=== PATIENT | male | born 1975 | race Caucasian/White ===

== ENCOUNTER 2017-05-28 17:40 | Emergency (ER) | payer MEDICAID ==
[~2017-05-28] VITALS: Wt 81.0 kg
[2017-05-28] MEDS ORDERED: CLOT30CR24 TOP (19:47)
[2017-05-28] MEDS ORDERED: HC30CR25 TOP (19:47)
--- NOTE | 2017-05-28 22:03 | ERD ---
ER Documentation Chief Complaint Chief Complaint RECTAL PAIN AND CONSTIPATION X 2 DAYS HPI Patient is a 41-year-old male presented to the emergency department with complaints of rectal burning and itching. Symptoms have been worsening over the past 2 days. Last bowel movement was approximately 2 hours ago. The patient noted mild blood on the toilet paper when he was wiping today after a bowel movement. He does have history of hemorrhoids. He reports a burning inside of the rectal area. He also reports itching. Symptoms are moderate and intermittent and have not been improving. No other symptoms reported at this time. ROS All systems reviewed and are negative except as per history of present illness. Medications Home Meds Active Scripts Hydrocortisone* Topical (Hydrocortisone* Topical) 2.5%-28.3 Gm Cream..g., 1 APPLIC TOP BID for 7 Days, #1 TUB Prov:KAVON FERNANDO PA-C 05/28/17 Clotrimazole* (Clotrimazole* AF) 1% - 30 Gm Cream.gm., 1 APPLIC TOP BID for 7 Days, #1 TUB Prov:KAVON FERNANDO PA-C 05/28/17 Allergies Allergies: Coded Allergies: No Known Allergy (Unverified , 05/28/17) PMhx/Soc Medical and Surgical Hx: pt denies Medical Hx, pt denies Surgical Hx Hx Alcohol Use: Yes Hx Substance Use: No Hx Tobacco Use: No Smoking Status: Never smoker Physical Exam Vitals Vital Signs Date Time Temp Pulse Resp B/P Pulse Ox O2 Delivery O2 Flow Rate FiO2 05/28/17 17:45 98.0 89 18 133/82 99 Physical Exam Const: Nontoxic, well-appearing male in no acute distress. Head: Atraumatic Eyes: Normal Conjunctiva ENT: Normal External Ears, Nose and Mouth. Skin: No petechiae or rashes RECTAL: Verbal Consent Obtained. Erythema noted to the anus. Sphincter tone is normal. No external hemorrhoids seen. No evidence of anal fissure or internal hemorrhoids. Non-tender to digital rectal palpation. No masses palpated. Ext: No cyanosis, or edema Neur: Awake and alert Psych: Normal Mood and Affect Procedures/MDM 41-year-old male presents to the emergency department with complaints of rectal itching. Diagnosis is likely secondary to a tinea infection. There was erythema but no evidence of hemorrhoids or anal fissures or other abnormalities. The patient was stable for discharge with a prescription for hydrocortisone and clotrimazole topical. He is to have very close primary care follow-up. No evidence of life-threatening pathology at time of discharge. Pt/family in agreement with discharge plan/diagnosis. Pt/family advised to return immediately with any new or worsening symptoms. Follow-up with primary care physician within the next 1-2 days. Disclaimer: Inadvertent spelling and grammatical errors are likely due to EHR/ dictation software use and do not reflect on the overall quality of patient care. Also, please note that the electronic time recorded on this note does not necessarily reflect the actual time of the patient encounter. Departure Diagnosis: Primary Impression: Rectal itching Additional Impression: Rectal hemorrhage Condition: Fair Patient Instructions: Maria Teresa Shirley, General [facility] Usted se wild hecho un examen mdico de control que le indica que no est en patricio condicin que requiera tratamiento urgente en el Departamento de Emergencia. Un estudio ms profundo y el tratamiento de palma condicin pueden esperar sin ningn riesgo hasta que usted sea atendida/o en el consultorio de palma mdico o patricio cl diana. Es responsabilidad suya arreglar patricio patience para el seguimiento del tevin. MANEJO DE CONDICIONES NO URGENTES EN EL FUTURO 1) Si usted tiene un mdico de atencin primaria: Usted debera llamar a palma mdico de atencin primaria antes de venir al departamento de emergencia. Despus de las horas de consultorio, palma doctor o palma asociado/a est disponible por telfono. El mdico o enfermero de vanessa en el servicio telefnico puede asesorarle por shantanu medio para atender el problema, o tevin contrario se puede programar patricio patience. 2) Si usted no tiene un mdico de atencin primaria: Llame al mdico o clnica de referencia que aparece abajo sukhdev las horas de consultorio para hacer patricio patience para que le vean. CLINICAS: [facility] [phone] [facility] [phone] [facility] [phone] [facility] [phone] [place] [address] [phone] [place] [id number] [phone] Additional Instructions: No mas mejor en 2-3 cadet, regresar. Mas peor en 24 horas, regresear rapidamente. Ir a doctor primario en 1-2 cadet. Usar instrucciones cuando jluis medicamento. KAVON FERNANDO PA-C May 28, 2017 22:03
== END 2017-05-28 20:03 | disposition home or self-care (01) ==
LOC: FTE 17:40
DX: K62.5 Hemorrhage of anus and rectum (principal)
CPT/HCPCS: 99284

== ENCOUNTER 2018-08-09 09:43 | Emergency (ER) | payer MEDICAID ==
[~2018-08-09] VITALS: Ht 180.3 cm; Wt 96.7 kg
[~2018-08-09 09:43] MED LIST: CLOT30CR24 TOP; HC30CR25 TOP
[2018-08-09 09:47] VITALS: Ht 180.3 cm; Wt 96.7 kg
[2018-08-09] MEDS ORDERED: OMEP10CA4 PO (10:26)
[2018-08-09] MEDS ORDERED: FAMOTIDINE 20 MG TAB PO STA (10:41)
[2018-08-09] MEDS ORDERED: LIDOCAINE/MYLANTA 40 ML BTL PO STA (10:41)
[2018-08-09] MEDS ORDERED: LIDOCAINE/MYLANTA 40 ML BTL ONE (10:45)
[2018-08-09] MEDS ORDERED: DICYCLOMINE 10 MG CAP ONE (10:45)
[2018-08-09] MEDS ORDERED: FAMOTIDINE 20 MG TAB ONE (10:47)
[2018-08-09] MEDS ORDERED: DICYCLOMINE 10 MG CAP PO ONE (11:00)
[2018-08-09] MEDS ORDERED: SUCR1TAB56 PO (11:45)
--- NOTE | 2018-08-09 11:48 | ERD ---
ER Documentation Chief Complaint Chief Complaint ABD PAIN X2 DAYS HPI 43-year-old male. Patient presents with 1-2 days of epigastric abdominal discomfort and bloating. He has a history of peptic ulcer disease and feels this is similar to chronic dyspepsia and PUD. He denies any chest pain or chest pressure. No nausea vomiting or diarrhea. He states normal bowel movements. Pain is only mild a proximally 3-10 currently. During the patient's encounter translation services were utilized Language: [Greek] Source: [in person] ROS All systems reviewed and are negative except as per history of present illness. Medications Home Meds Active Scripts Sucralfate* (Carafate*) 1 Gm Tab, 1 GM PO WITH MEALS, #20 TAB Prov:KRISTEN SHI MD 08/09/18 Reported Medications Omeprazole* (Omeprazole*) 10 Mg Capsule.dr, 10 MG PO AC BREAKFAST, #30 CAP 08/09/18 Discontinued Scripts Hydrocortisone* Topical (Hydrocortisone* Topical) 2.5%-28.3 Gm Cream..g., 1 APPLIC TOP BID for 7 Days, #1 TUB Prov:KAVON FERNANDO PA-C 05/28/17 Clotrimazole* (Clotrimazole* AF) 1% - 30 Gm Cream.gm., 1 APPLIC TOP BID for 7 Days, #1 TUB Prov:KAVON FERNANDO PA-C 05/28/17 Allergies Allergies: Coded Allergies: No Known Allergy (Unverified , 05/28/17) PMhx/Soc Medical and Surgical Hx: pt denies Surgical Hx Hx Miscellaneous Medical Probl: Yes (gastric ulcers) Hx Alcohol Use: Yes (beer on the weekends) Hx Substance Use: No Hx Tobacco Use: Yes (4 cigarettes/day) Smoking Status: Current every day smoker FmHx Family History: No diabetes Physical Exam Vitals Vital Signs Date Temp Pulse Resp B/P (MAP) Pulse Ox O2 O2 Flow FiO2 Time Delivery Rate 08/09/18 87 24 138/93 97 Room Air 10:37 (108) 08/09/18 97.2 89 17 154/97 97 09:47 (116) Physical Exam General: Well developed, well nourished, no acute distress Head: Normocephalic, atraumatic. Eyes: Pupils equally reactive, EOM intact ENT: Moist mucous membranes Neck: Supple, no lymphadenopathy Respiratory: Lungs clear bilaterally, no distress Cardiovascular: RRR, no murmurs, rubs, or gallops Abdominal: Soft, non-tender, non-distended, no peritoneal signs : Deferred MSK: No edema, no unilateral swelling, 5/5 strength Neurologic: Alert and oriented, moving all extremities, normal speech, no focal weakness, no cerebellar signs Skin: No rash Psych: Normal mood Result Diagram: 08/09/18 1034 08/09/18 1034 Results 24 hrs Laboratory Tests Test 08/09/18 10:34 White Blood Count 7.6 10^3/ul Red Blood Count 5.42 10^6/ul Hemoglobin 15.3 g/dl Hematocrit 46.2 % Mean Corpuscular Volume 85.2 fl Mean Corpuscular Hemoglobin 28.2 pg Mean Corpuscular Hemoglobin Concent 33.1 g/dl Red Cell Distribution Width 12.8 % Platelet Count 237 10^3/UL Mean Platelet Volume 10.2 fl Immature Granulocytes % 0.400 % Neutrophils % 60.3 % Lymphocytes % 27.7 % Monocytes % 8.3 % Eosinophils % 3.0 % Basophils % 0.3 % Nucleated Red Blood Cells % 0.0 /100WBC Immature Granulocytes # 0.030 10^3/ul Neutrophils # 4.6 10^3/ul Lymphocytes # 2.1 10^3/ul Monocytes # 0.6 10^3/ul Eosinophils # 0.2 10^3/ul Basophils # 0.0 10^3/ul Nucleated Red Blood Cells # 0.0 10^3/ul Sodium Level 143 mmol/L Potassium Level 4.2 mmol/L Chloride Level 101 mmol/L Carbon Dioxide Level 28 mmol/L Anion Gap 14 Blood Urea Nitrogen 11 mg/dl Creatinine 0.48 mg/dl Est Glomerular Filtrat Rate mL/min > 60 mL/min Glucose Level 100 mg/dl Calcium Level 9.5 mg/dl Total Bilirubin 0.4 mg/dl Direct Bilirubin 0.00 mg/dl Indirect Bilirubin 0.4 mg/dl Aspartate Amino Transf (AST/SGOT) 30 IU/L Alanine Aminotransferase (ALT/SGPT) 34 IU/L Alkaline Phosphatase 126 IU/L Total Protein 8.6 g/dl Albumin 4.6 g/dl Globulin 4.00 g/dl Albumin/Globulin Ratio 1.15 Lipase 49 U/L Current Medications Medications Dose Sig/Luan Start Time Status Last (Trade) Ordered Route PRN Stop Time Admin Dose Reason Admin Famotidine 20 mg ONCE STAT 08/09/18 DC 08/09/18 (Pepcid) PO 10:41 10:48 08/09/18 10:43 40 ml ONCE STAT 08/09/18 DC 08/09/18 Miscellaneous PO 10:41 10:48 Medication 08/09/18 10:43 (Gi Cocktail (2)) Dicyclomine 10 mg ONCE ONCE 08/09/18 DC 08/09/18 HCl PO 11:00 10:48 (Bentyl) 08/09/18 11:01 40 ml STK-MED 08/09/18 DC Miscellaneous ONCE .ROUTE 10:45 Medication 08/09/18 10:46 (Gi Cocktail (2)) Dicyclomine 10 mg STK-MED 08/09/18 DC HCl ONCE .ROUTE 10:45 (Bentyl) 08/09/18 10:46 Famotidine 20 mg STK-MED 08/09/18 DC (Pepcid) ONCE .ROUTE 10:47 08/09/18 10:48 Procedures/MDM LAB INTERPRETATION: No hepatobiliary obstruction no evidence of acute infection MEDICAL DECISION MAKING: Abdominal pain is very consistent with exacerbation of acute dyspepsia and peptic ulcer disease. Benign abdominal exam without signs or symptoms concer rica for perforated viscus or acute intra-abdominal process. No signs or symptoms concerning for cardiogenic process. Symptom control and basic blood work be reasonable. ER COURSE: * GI cocktail provided. Symptoms improved. Laboratory testing is reassuring * At this point the patient can be safely discharged with primary care follow- up, outpatient GI follow-up recommended as well. CONSULTATION: [None] DISPOSITION PLAN: Carafate Departure Diagnosis: Primary Impression: Epigastric abdominal pain Condition: Stable Patient Instructions: Gerd (Adult) Referrals[facility] Usted se wild hecho un examen mdico de control que le indica que no est en patricio condicin que requiera tratamiento urgente en el Departamento de Emergencia. Un estudio ms profundo y el tratamiento de palma condicin pueden esperar sin ningn riesgo hasta que usted sea atendida/o en el consultorio de palma mdico o patricio clnica. Es responsabilidad suya arreglar patricio roma para el seguimiento del tevin. MANEJO DE CONDICIONES NO URGENTES EN EL FUTURO 1) Si usted tiene un mdico de atencin primaria: Usted debera llamar a palma mdico de atencin primaria antes de venir al departamento de emergencia. Despus de las horas de consultorio, palma doctor o palma asociado/a est disponible por telfono. El mdico o enfermero de vanessa en el servicio telefnico puede asesorarle por shantanu medio para atender el problema, o tevin contrario se puede programar patricio roma. 2) Si usted no tiene un mdico de atencin primaria: Llame al mdico o clnica de referencia que aparece abajo sukhdev las horas de consultorio para hacer patricio roma para que le vean. CLINICAS: [facility] [phone] [facility] [phone] [address] [facility] [phone] [facility] [facility] [phone] [facility] [place] [id number] [phone] [facility]. [phone] [facility] () Usted se wild hecho un examen mdico de control que le indica que no est en patricio condicin que requiera tratamiento urgente en el Departamento de Emergencia. Un estudio ms profundo y el tratamiento de palma condicin pueden esperar sin ningn riesgo hasta que usted sea atendida/o en el consultorio de palma mdico o patricio clnica. Es responsabilidad suya arreglar patricio roma para el seguimiento del tevin. MANEJO DE CONDICIONES NO URGENTES EN EL FUTURO 1) Si usted tiene un mdico de atencin primaria: Usted debera llamar a palma mdico de atencin primaria antes de venir al departamento de emergencia. Despus de las horas de consultorio, palma doctor o palma asociado/a est disponible por telfono. El mdico o enfermero de vanessa en el servicio telefnico puede asesorarle por shantanu medio para atender el problema, o tevin contrario se puede programar patricio roma. 2) Si usted no tiene un mdico de atencin primaria: Llame al mdico o condado institucions de referencia que aparece abajo sukhdev las horas de consultorio para hacer patricio roma para que le vean. SI USTED NO PUEDE PAGAR PARA JET UN MEDICO puede ir a: [facility] [address] [place], [place] [id number] [place] [address] [address] [place] [address] [facility] [address] [place] [address] [facility]A [facility] [address] [place], [place] [phone] Additional Instructions: Llame al doctor nombrado abajo (Referral Sources) MAANA y bridger patricio ROMA PARA DENTRO DE PATRICIO SEMANA. Dgale a la secretaria que nosotros le instruimos hacer esta roma.Avise o llame si palma condicin se empeora antes de la roma. KRISTEN SHI MD Aug 09, 2018 11:48
[2018-08-09 11:55] VITALS: BP 137/95; PULSE 90; RESP 18
== END 2018-08-09 11:56 | disposition home or self-care (01) ==
LOC: E/R 09:43
DX: R10.13 Epigastric pain (principal); F17.210 Nicotine dependence, cigarettes, uncomplicated
CPT/HCPCS: 36415; 80053; 83690; 85025; Z7502; Z7610; 99283